=== PATIENT | male | born 1965 | race Caucasian/White ===

== ENCOUNTER 2019-05-28 16:24 | Inpatient (IN) ==
[2019-05-28] MEDS ORDERED: SALINE LOCK IV FLUID XX ONE (18:28)
[2019-05-28] MEDS: ZOSYN 3.375 GM in NS 50 ML IV SCH (20:10)
[2019-05-28 20:47] LABS: AGAP 16; BUN 19 mg/dL (8-22); CALCIUM 9.7 mg/dL (8.8-10.2); CHLORIDE 98 mmol/L (98-107); COSMO 279; CREATININE 0.8 mg/dL (0.7-1.2); ESTIMATED GFR > 60; GLUCOSE 154 mg/dL (70-104); POTASSIUM 4.3 mmol/L (3.5-5.1); SODIUM 137 mmol/L (136-145); TCO2 23 mmol/L (25-35)
[2019-05-28 21:00] LABS: BASO# 0.11 X1000 (0.0-0.2); BASO% 1.3 % (0.0-0.8); EOS# 0.63 X1000 (0.0-0.7); EOS% 7.3 % (0.0-10.0); HEMATOCRIT 40.6 % (42.0-52.0); HEMOGLOBIN 13.3 g/dL (14.0-18.0); IMM GRAN# 0.07 X1000 (0.0-0.04); IMM GRAN% 0.8 % (0.0-0.5); LYMPH# 1.85 X1000 (1.2-3.4); LYMPH% 21.4 % (20.5-51.1); MCH 28.6 PG (27-31); MCHC 32.8 g/dL (33-37); MCV 87.3 FL (81-99); MONO# 0.78 X1000 (0.11-0.59); MPV 8.9 FL (7.4-10.4); NEUT% 60.2 % (42.2-75.2); PLT 520 X1000 (130-400); RBC 4.65 XMIL (4.7-6.1); RDW 12.9 % (11.5-14.5); WBC 8.64 X1000 (4.8-10.8)
[2019-05-28] MEDS: VANCOMYCIN 1 GM/NS 1 GM/250 ML IVPB IV SCH (21:25)
[2019-05-28 21:30] LABS: EOS 8 % (1-10); LARGE PLATELETS OCCASIONAL; LYMPHS 16 % (21-51); MONO 6 % (1-9); SEGS 67 % (42-75)
[2019-05-29] MEDS: ZOSYN 3.375 GM in NS 50 ML IV SCH ×4 (03:12→22:54)
[2019-05-29] MEDS: PLAVIX PO SCH ×2 (05:44→22:55)
[2019-05-29] MEDS: LIPITOR PO SCH ×2 (05:44→22:55)
[2019-05-29] MEDS: VANCOMYCIN 1 GM/NS 1 GM/250 ML IVPB IV SCH (08:53)
[2019-05-29] MEDS ORDERED: LANTUS INSULIN SUBQ SCH (09:00)
[2019-05-29] MEDS ORDERED: INSULIN PEN NEEDLES ONE (09:46)
[2019-05-29] MEDS: ASPIRIN PO SCH (10:11)
[2019-05-29] MEDS: JANUVIA PO SCH (10:11)
[2019-05-29] MEDS: DIABETA PO SCH ×2 (10:11→17:50)
[2019-05-29] MEDS: GLUCOPHAGE PO SCH ×2 (10:11→17:50)
[2019-05-29] MEDS: TIMOPTIC 0.5% OPH SOLUTION RIGHT EYE SCH ×2 (10:12→13:31)
[2019-05-29] MEDS: ALPHAGAN P 0.1% OPHTH SOLN RIGHT EYE SCH ×3 (10:12→17:53)
[2019-05-29] MEDS: HUMULIN 70/30 SUBQ SCH ×2 (10:17→17:51)
--- NOTE | 2019-05-29 14:34 | GENERAL SURGERY PROGRESS NOTE ---
DATE: 05/29/2019 Mr. Enciso is afebrile with stable hemodynamics. His white count upon admission was 8,600. His wound today shows no new purulence. We re-covered it with Betadine-impregnated gauze. We will continue with vancomycin and Zosyn until we get the final report on the microbe on the culture. cc: Jose Roman MD
[2019-05-29] MEDS ORDERED: ZOSYN ONE (16:03)
[2019-05-29] MEDS: LANTUS INSULIN SUBQ SCH (22:55)
[2019-05-30] MEDS: VANCOMYCIN 1 GM/NS 1 GM/250 ML IVPB IV SCH ×3 (00:18→22:02)
[2019-05-30] MEDS: ZOSYN 3.375 GM in NS 50 ML IV SCH ×3 (04:53→18:06)
[2019-05-30] MEDS: GLUCOPHAGE PO SCH ×2 (08:21→18:05)
[2019-05-30] MEDS: ASPIRIN PO SCH (08:21)
[2019-05-30] MEDS: JANUVIA PO SCH (08:21)
[2019-05-30] MEDS: DIABETA PO SCH ×2 (08:22→18:05)
[2019-05-30] MEDS: HUMULIN 70/30 SUBQ SCH ×2 (08:23→18:06)
[2019-05-30] MEDS: ALPHAGAN P 0.1% OPHTH SOLN RIGHT EYE SCH ×2 (08:54→18:11)
[2019-05-30] MEDS: TIMOPTIC 0.5% OPH SOLUTION RIGHT EYE SCH (08:55)
--- NOTE | 2019-05-30 10:02 | GENERAL SURGERY PROGRESS NOTE ---
DATE: 05/30/2019 SUBJECTIVE/OBJECTIVE: Mr. Oliveros is afebrile heart rate 95, blood pressure 166/77. His wound was inspected. There is less swelling less erythema. No real evidence of granulation tissue as of yet. The wound bandage is changed with new Betadine gauze dressing placed. PLAN: We will continue with IV antibiotic therapy. His wound culture from the wound center is still pending. cc: Jose Roman MD
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
[2019-05-30] MEDS: LANTUS INSULIN SUBQ SCH (22:02)
[2019-05-30] MEDS: PLAVIX PO SCH (22:02)
[2019-05-30] MEDS: LIPITOR PO SCH (22:02)
[2019-05-31] MEDS: ZOSYN 3.375 GM in NS 50 ML IV SCH ×2 (00:16→06:31)
[2019-05-31] MEDS: ALPHAGAN P 0.1% OPHTH SOLN RIGHT EYE SCH ×3 (09:18→17:10)
[2019-05-31] MEDS: VANCOMYCIN 1 GM/NS 1 GM/250 ML IVPB IV SCH ×2 (09:19→20:32)
[2019-05-31] MEDS: DIABETA PO SCH ×2 (09:22→17:16)
[2019-05-31] MEDS: GLUCOPHAGE PO SCH ×2 (09:22→17:16)
[2019-05-31] MEDS: HUMULIN 70/30 SUBQ SCH ×2 (09:22→17:18)
[2019-05-31] MEDS: ASPIRIN PO SCH (09:22)
[2019-05-31] MEDS: JANUVIA PO SCH (09:22)
[2019-05-31] MEDS: PLAVIX PO SCH (20:32)
[2019-05-31] MEDS: LANTUS INSULIN SUBQ SCH (20:32)
[2019-05-31] MEDS: LIPITOR PO SCH (20:33)
[2019-06-01] MEDS: VANCOMYCIN 1 GM/NS 1 GM/250 ML IVPB IV SCH ×2 (08:55→21:37)
[2019-06-01] MEDS: HUMULIN 70/30 SUBQ SCH ×2 (08:56→17:16)
[2019-06-01] MEDS: JANUVIA PO SCH (08:57)
[2019-06-01] MEDS: GLUCOPHAGE PO SCH ×2 (08:57→17:16)
[2019-06-01] MEDS: DIABETA PO SCH ×2 (08:57→17:16)
[2019-06-01] MEDS: ASPIRIN PO SCH (08:58)
[2019-06-01] MEDS: ALPHAGAN P 0.1% OPHTH SOLN RIGHT EYE SCH ×3 (09:01→17:22)
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
--- NOTE | 2019-06-01 18:33 | GENERAL SURGERY PROGRESS NOTE ---
DATE: 06/01/2019 Mr. Enciso's wound looks better. There is some granulation at the edges. There still is some slough and white tissue in the base. The plan is to debride it in the operating room on the and discharge on the . If it continues to improve, we will continue with his vancomycin and Vashe gauze. cc: Jose Roman MD
[2019-06-01] MEDS: LANTUS INSULIN SUBQ SCH (21:37)
[2019-06-01] MEDS: LIPITOR PO SCH (21:37)
[2019-06-01] MEDS: PLAVIX PO SCH (21:37)
[2019-06-02] MEDS ORDERED: INSULIN PEN NEEDLES ONE (06:32)
[2019-06-02] MEDS: VANCOMYCIN 1 GM/NS 1 GM/250 ML IVPB IV SCH ×2 (08:40→20:52)
[2019-06-02] MEDS: ASPIRIN PO SCH (08:40)
[2019-06-02] MEDS: GLUCOPHAGE PO SCH ×2 (08:40→16:46)
[2019-06-02] MEDS: DIABETA PO SCH ×2 (08:40→16:46)
[2019-06-02] MEDS: HUMULIN 70/30 SUBQ SCH ×2 (08:40→16:46)
[2019-06-02] MEDS: JANUVIA PO SCH (08:41)
[2019-06-02] MEDS: ALPHAGAN P 0.1% OPHTH SOLN RIGHT EYE SCH ×3 (08:41→16:48)
--- NOTE | 2019-06-02 10:17 | PROGRESS NOTE ---
DATE: 06/02/2019 SUBJECTIVE: Dr. Roman is planning more debridement on his foot. He does feel good. No complaints. OBJECTIVE: Vital Signs: Temperature 98.7 degrees, pulse 100, respirations 18, blood pressure 140/81. HEENT: Pupils are equal round. Lungs: Clear in all lung romero. Cardiovascular: Regular rate without murmur or S3. Abdomen: Soft. Skin is warm and dry. LABORATORY DATA: Blood sugar 170, 219, 205. ASSESSMENT AND PLAN: 1. Diabetes mellitus type 2. Sugars are well controlled. 2. Diabetic foot ulcer for debridement today. Continue current antibiotics. Cultures grew out methicillin-resistant Staphylococcus aureus. 3. Hypertension. 4. Status post cerebrovascular accident in the past. REVIEW OF ORDERS: On vancomycin 1 g q.12, is getting Januvia 100 mg a day, metformin 500 mg b.i.d., and on Humulin NPH 12 units twice a day, Lantus insulin 20 units q.p.m., glyburide 10 mg p.o. b.i.d., Plavix 75 mg q.p.m., Lipitor 40 mg q.p.m., aspirin 325 mg a day. cc: MD Jose Diallo MD
[2019-06-02] MEDS: LIPITOR PO SCH (20:52)
[2019-06-02] MEDS: PLAVIX PO SCH (20:52)
[2019-06-02] MEDS: LANTUS INSULIN SUBQ SCH (20:52)
--- NOTE | 2019-06-02 20:54 | GENERAL SURGERY PROGRESS NOTE ---
DATE: 06/02/2019 SUBJECTIVE: Mr. Enciso's wound continues to improve. OBJECTIVE: His temp was 99.4 degrees today. Hemodynamics are good. PLAN: We will plan to take him to the operating room tomorrow to further debride his lateral foot. We will continue with use of Vashe twice a day. cc: Jose Roman MD
[2019-06-03] MEDS: VANCOMYCIN 1 GM/NS 1 GM/250 ML IVPB IV SCH ×2 (11:37→20:53)
[2019-06-03] MEDS: DIABETA PO SCH ×2 (11:40→17:38)
[2019-06-03] MEDS: JANUVIA PO SCH (11:40)
[2019-06-03] MEDS: ASPIRIN PO SCH (11:40)
[2019-06-03] MEDS: GLUCOPHAGE PO SCH ×2 (11:40→17:38)
[2019-06-03] MEDS: HUMULIN 70/30 SUBQ SCH ×2 (11:40→17:39)
[2019-06-03] MEDS: ALPHAGAN P 0.1% OPHTH SOLN RIGHT EYE SCH ×3 (11:41→17:42)
[2019-06-03] MEDS ORDERED: ROBINUL ONE (12:21)
[2019-06-03] MEDS ORDERED: QUELICIN (DOSE) ONE (12:21)
[2019-06-03] MEDS ORDERED: DIPRIVAN 1% ONE (12:22)
[2019-06-03] MEDS ORDERED: XYLOCAINE-MPF 2% ONE (12:22)
[2019-06-03] MEDS ORDERED: FENTANYL ONE (12:22)
[2019-06-03] MEDS ORDERED: ZOFRAN ONE (13:01)
--- NOTE | 2019-06-03 14:32 | PROGRESS NOTE ---
DATE: 06/03/2019 SUBJECTIVE: Mr. Newton is feeling pretty good. He is going to surgery this morning. Eating well. Sugars have come down nicely. Last 5 sugars 205, 143,161,171, 219. OBJECTIVE: Remains afebrile pulse 96, respirations 20, blood pressure 158/83. Pupils are equal round. Lungs are clear in all lung romero. Cardiovascular regular rate without murmur or S3 abdomen is soft. Skin is warm and dry. ASSESSMENT AND PLAN: 1. He will get some debridement and drainage today and suspect he may get to go home tomorrow. 2. Continue his Vashe wash. 3. Blood sugars look under good control. 4. His blood pressure under good control as well. 5. Hopefully goes home in the morning. 6. We will continue current antibiotics. 7. He is on vancomycin right now. We see if cultures grow anything. cc: MD Jose Diallo MD
--- NOTE | 2019-06-03 20:47 | OPERATIVE NOTE ---
PROCEDURE DATE: 06/03/2019 PREOPERATIVE DIAGNOSIS: Diabetic foot infection. POSTOPERATIVE DIAGNOSIS: Diabetic foot infection. PROCEDURES: Excisional debridement of skin and subcutaneous tissue, right lateral foot (5 x 4 cm). SURGEON: Jose Roman MD [employer]: RASHAD Orellana student. DESCRIPTION OF PROCEDURE: Satisfactory general anesthesia was achieved. The right foot was prepped and draped in a sterile fashion. We sharply excised the necrotic tissue and used a curette as well in the periphery of the wound to remove all the slough and necrotic debris circumferentially in the wound. The wound measured 5 x 4 cm. The bleeding was present from the edges but did not require any cauterization. After complete debridement of the wound circumferentially, we got back to what we felt was adequately viable tissue. We then placed a saline gauze on the wound, followed by sterile 4 x 4's, followed by Kerlix. He tolerated it well and was sent to the recovery room in satisfactory condition. cc: Jose Roman MD MTDD
[2019-06-03] MEDS: PERIDEX MT SCH (20:53)
[2019-06-03] MEDS: PLAVIX PO SCH (20:54)
[2019-06-03] MEDS: LIPITOR PO SCH (20:54)
[2019-06-03] MEDS: LANTUS INSULIN SUBQ SCH (20:56)
[2019-06-03] MEDS ORDERED: NORCO-7.5 PO PRN (21:57)
[2019-06-04] MEDS: GLUCOPHAGE PO SCH ×2 (08:05→16:49)
[2019-06-04] MEDS: DIABETA PO SCH ×2 (08:05→16:49)
[2019-06-04] MEDS: VANCOMYCIN 1 GM/NS 1 GM/250 ML IVPB IV SCH (08:05)
[2019-06-04] MEDS: JANUVIA PO SCH (08:05)
[2019-06-04] MEDS: ASPIRIN PO SCH (08:05)
[2019-06-04] MEDS: HUMULIN 70/30 SUBQ SCH ×2 (08:06→16:50)
[2019-06-04] MEDS: PERIDEX MT SCH (08:07)
[2019-06-04] MEDS: ALPHAGAN P 0.1% OPHTH SOLN RIGHT EYE SCH ×3 (08:07→16:01)
--- NOTE | 2019-06-04 14:49 | PROGRESS NOTE ---
DATE: 06/04/2019 SUBJECTIVE: The patient's chart was reviewed. In summary, patient was admitted on 05/28/2019, with a diabetic foot infection. The patient was placed on IV antibiotics in the form of vancomycin therapy. Wound cultures returned positive for MRSA. Ultimately, patient required excisional debridement of the skin and subcutaneous tissue of the right lateral foot on 06/03/2019. He tolerated this procedure well. This afternoon, patient states he is feeling quite well. He is tolerating p.o. Pain is controlled. He denies fevers, chills, nausea, vomiting, shortness of breath, or chest discomfort. OBJECTIVE: Temperature max 98.4 degrees, heart rate 84 to 97, respirations 12 to 20, blood pressure 127 to 144 over 64 to 100.General: Well nourished, well developed, in no acute distress. Cardiovascular: Regular rate and rhythm. No significant murmurs, rubs, or gallops. Pulmonary: Clear to auscultation bilaterally. Abdomen: Soft, nontender, nondistended. Positive bowel sounds. Extremities: Moves all extremities well. No significant clubbing or cyanosis to the left lower extremity. Trace lower extremity edema present. Right lower extremity has a surgical dressing. LABORATORY DATA: None. ASSESSMENT AND PLAN: 1. Diabetic foot ulcer. Patient is postoperative day #1. I discussed the case with Dr. Roman. If his wound appears acceptable, patient will be discharged home this evening with a wound [facility]. Close outpatient followup will be arranged. He will be discharged home with antibiotics for underlying methicillin-resistant Staphylococcus aureus wound infection. These would include, but are not limited to, doxycycline or Bactrim therapy. 2. Diabetes. The patient notes dietary indiscretion recently. Historically, with better dietary control, his blood sugars have been within normal limits. For now, we will continue his current regimen per his primary care physician, Dr. Paredes. Again, close followup has been recommended. 3. Hyperlipidemia. Patient has been continued on his atorvastatin therapy while hospitalized. We will defer management to Dr. Paredes as an outpatient. 4. History of stroke. We will continue patient on optimized medical management. 5. Hypertension. Blood pressure is modestly elevated. The question is raised whether this is reactive or his baseline. We will defer management to Dr. Paredes as an outpatient. 6. Disposition. At this point, patient continues to require senior living care in the hospital setting. Depending on his wound evaluation this afternoon, he may be discharged home. cc: MD Jose Quiñones MD
[2019-06-04 16:09] VITALS: BP 139/78
--- NOTE | 2019-06-04 21:44 | GENERAL SURGERY PROGRESS NOTE ---
DATE: 06/04/2019 Braden now has a wound VAC in place. We will keep that on at home. He will come back to see me in 6 days in the office. I will send him home on Bactrim. cc: Jose Roman MD
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
== END 2019-06-04 18:07 | disposition home health service (06) | DRG 623 ==
LOC: DIRADM 16:24 → 4N 18:23
PROVIDERS: ADMIT Surgery; ATTEND Surgery